=== PATIENT | female | born 1950 | race Two or more races ===

== ENCOUNTER 2019-01-23 22:05 | Emergency (ER) | payer OTHER ==
[~2019-01-23] VITALS: Ht 149.9 cm; Wt 77.1 kg
[~2019-01-23 22:05] MED LIST: CALCIUM300 MG PO; HYZAAR 100/25 T1 TAB PO; NEURONTIN300 MG PO; SYNTHROID88 MCG PO
[2019-01-23] MEDS ORDERED: SYMBICORT 16010.2 GM (22:32)
[2019-01-24] MEDS ORDERED: ZYNCOF 20-400120 ML PO ×2 (03:44→03:45)
[2019-01-24] MEDS ORDERED: IPRATROPIU0.2 MG/1 M IH (03:45)
== END 2019-01-24 03:54 | disposition home or self-care (01) ==
LOC: ER 22:05
DX: J44.9 Chronic obstructive pulmonary disease, unspecified (principal); J20.9 Acute bronchitis, unspecified; J11.1 Influenza due to unidentified influenza virus with other respiratory manifestations

== ENCOUNTER 2025-07-13 04:58 | Emergency (ER) | payer OTHER ==
[~2025-07-13] VITALS: Ht 149.9 cm; Wt 77.1 kg
[~2025-07-13 04:58] MED LIST changes: +IPRATROPIU0.2 MG/1 M IH; +SYMBICORT 16010.2 GM; +ZYNCOF 20-400120 ML PO
[2025-07-13 05:12] VITALS: BP 147/70; O2SAT 98
[2025-07-13] MEDS ORDERED: FAMOTIDINE/PF 20 MG/2 ML VIAL IV PUSH STA (06:03)
[2025-07-13] MEDS ORDERED: ONDANSETRON HCL 2 MG/ML VIAL IV STA (06:03)
[2025-07-13] MEDS ORDERED: LEVALBUTEROL HCL 0.63 MG/3 ML SOLUTION IH SCH (06:15)
[2025-07-13 06:37] LABS: ABG PH 7.507 (7.35-7.45); ABG PO2 69.5 mmHg (80-100); BICARBONATE 25.8 mmol/l (23-25)
[2025-07-13 06:51] LABS: o2 21 %
[2025-07-13 07:21] LABS: BASO % 0.4 % (0.1-1.2); EOS # 0.07 (0.04-0.54); EOS % 0.8 % (0.7-7.0); LYMPH # 1.23 (1.18-3.74); LYMPH % 13.6 % (19.3-53.1); MEAN PLATELET VOLUME 11.10 fl (9.4-12.4); MONO # 0.69 (0.24-0.82); MONO % 7.6 % (4.7-12.5); NEUT # 6.98 (1.56-6.13); NEUT % 77.3 % (34.0-71.1); RED CELL DISTRIBUTION WIDTH 16.1 % (11.6-14.4)
[2025-07-13 07:41] LABS: INR 1.01
[2025-07-13 07:46] LABS: ALT/SGPT 17.0 U/L (12-78); AST/SGOT 15.0 U/L (15-37); BILIRUBIN TOTAL 0.29 mg/dL (0.3-1.2); BUN CREA RATIO 17.0 (7.0-25.0); CREATININE SERUM 1.09 mg/dL (0.55-1.02); GFR 48.67; GLOBULINA 3.7 G/DL (2.4-3.5); GLUCOSE FASTING 131.0 mg/dL (65-100); OSMOLALITY SERUM 283.0 MOSM/KG (275-295)
[2025-07-13 07:58] LABS: COVID-19 AG NEGATIVE (NEGATIVE)
[2025-07-13] MEDS ORDERED: POTASSIUM CHLORIDE IN WATER 100 ML IV ONE (08:15)
[2025-07-13 08:21] LABS: URINE APPEARANCE Clear; URINE BILIRRUBIN Negative (NEGATIVE); URINE BLOOD Negative; URINE COLOR Yellow; URINE GLUCOSE Negative (NEGATIVE); URINE KETONE Negative (NEGATIVE); URINE LEUKOCYTE Negative; URINE NITRATE Negative; URINE PROTEIN Negative (NEGATIVE); URINE UROBILINOGEN 0.2 E.U./dl
[2025-07-13 08:25] LABS: URINE BACTERIA 14.3 uL (0.0-1933); URINE EPITHELIAL CELLS 5.8 uL (0.0-38.8); URINE WBC 4.4 uL (0.0-23.2)
[2025-07-13 08:33] LABS: URINE CAST 0.87 uL (0.0-1.40); URINE RBC 1.7 uL (0.0-20.8)
[2025-07-13 18:06] LABS: ALT/SGPT 19.0 U/L (12-78); AST/SGOT 17.0 U/L (15-37); BILIRUBIN TOTAL 0.29 mg/dL (0.3-1.2); BUN CREA RATIO 14.0 (7.0-25.0); CREATININE SERUM 1.11 mg/dL (0.55-1.02); GFR 47.66; GLOBULINA 3.7 G/DL (2.4-3.5); GLUCOSE FASTING 96.0 mg/dL (65-100); OSMOLALITY SERUM 284.0 MOSM/KG (275-295)
[2025-07-13] MEDS ORDERED: LEVALBUTER0.63 MG/3 IH (18:21)
[2025-07-13] MEDS ORDERED: PEPCID AC20 MG PO (18:21)
== END 2025-07-13 18:42 | disposition home or self-care (01) ==
LOC: ER 04:58
PROVIDERS: General Practice
DX: R06.02 Shortness of breath (principal); R07.9 Chest pain, unspecified; Z20.822 Contact with and (suspected) exposure to COVID-19; I10 Essential (primary) hypertension; E11.9 Type 2 diabetes mellitus without complications; Z88.6 Allergy status to analgesic agent
CPT/HCPCS: 36415; 71045; 82803; 93005; 94640; 96365; 99283; J2405; J3490